=== PATIENT | male | born 1960 | race Caucasian/White ===

== ENCOUNTER 2017-02-24 02:06 | Observation (INO) | payer BC ==
[2017-02-24] MEDS ORDERED: ASPIRIN PO ONE (02:46)
[2017-02-24] MEDS ORDERED: ASPIRIN ONE (02:52)
--- NOTE | 2017-02-24 02:54 | DR.GENAD ---
HPI - PCP Primary Care Physician: sheridan - Complaint/Symptoms Chief Complaint Doctors Comments: Patient states he was getting out his recliner and had episode of slurred speech with problems walking with left side weakness lasting 15 minutes and then he went back to being normal. States he has never had similar problems before. States he has had a stomach virus for over a week and was sent to the ER few nights ago for IV fluids and saw him yesterday and had labs but he was feeling better today and the diarrhea had improved. He denies chest pain, SOB, edema, tobacco or alcohol usage. States he has been having diarrhea all week with vomiting from last Sunday until today. His appetite is good. States he has not been taking his blood pressure medicines because he does not like to take pills but he just got another refill from Dr. Alvarez recently but has not started it because he was sick. Chief Complaint:: slurred speech, high blood pressure. - Nurses notes reviewed Nurses Notes Review: Yes - Source History Provided: Patient - Mode of Arrival Mode of Arrival: Ambulatory - Timing Onset of Chief Complaint: 02/24/17 Came on: Suddenly - Duration Duration: Intermittent How lon Duration: Minutes - Location Location: slurred speech with probems with walking - Severity Severity: Mild - Modifying Factors Worsens:: nothing Improves:: nothing PMH - PMH Past Medical History: Yes Past Medical History: Depression, Dyslipidemia, Hypertension Past Surgical History: Yes Surgical History: Abdominal Surgery, Ortho Surgery, Other Past Surgical History Comment: patient has had umbillical hernia repair, right breast lumpectomy and knee surgery - Family History History of Family Medical Conditions: Yes Family Medical History: Diabetes Mellitus, Coronary Artery Disease, Heart Failure, Hypertension - Social History Does patient currently use any type of tobacco product: Yes Have you used tobacco products in the last 12 months: Yes Type of Tobacco Use: Smokeless Does any household member use tobacco: No Alcohol Use: None Do you use any recreational Drugs:: No Lives With: Family Lives Where: Home - infectious screening In the last 2 months have you had wt loss of >10#?: NO Have you had fever, night sweats or hemotysis?: No Have you traveled outside the country in the last 6 months?: No Isolation: Standard ROS - Review of Systems Constitutional: No Symptoms Reported. negative: See HPI, Chills, Diaphoresis, Fever, Malaise, Weakness, Irritable, Fatigue, Loss of Appetite, Other Eyes: No Symptoms Reported. negative: See HPI, Eye Pain, Blurred Vision, Tearing, Discharge, Photophobia, Diplopia, Other ENTM: No Symptoms Reported. negative: See HPI, Ear Pain, Ear Discharge, Pulling on Ears, Hearing Loss, Nose Pain, Nose Discharge, Epistaxis, Nose Congestion, Mouth Pain, Mouth Swelling, Loose Teeth, Drooling, Throat Pain, Throat Swelling, Ear Foreign Body Respiratoy: No Symptoms Reported. negative: See HPI, Productive Cough, Non- Productive Cough, Moist Cough, Dry Cough, Hacking Cough, Barking Cough, Brassy Cough, Orthopnea, Short of Breath, Stridor, Wheezing, Hemoptysis, Other Cardiovascular: No Symptoms Reported. negative: See HPI, Chest Pain, Edema, Palpitations, Syncope, Cyanosis, Skin Mottling, Other Gastrointestinal/Abdominal: No Symptoms Reported, Diarrhea, Nausea, Vomiting. negative: See HPI, Abdominal Pain, Constipation, Food Intolerance, Other Genitourinary: No Symptoms Reported Neurological: No Symptoms Reported, Paresthesia, Weakness, Problems Walking. negative: See HPI, Anxiety, Depressed, Emotional Problems, Headache, Numbness, Pre-existing Deficit, Seizure, Tingling, Tremors, Dizziness, Speech Problem, Other Musculoskeletal: No Symptoms Reported Integumentary: No Symptoms Reported Hematologic/Lymphatic: No Symptoms Reported. negative: See HPI, Anemia, Blood Clots, Easy Bleeding, Easy Bruising, Swollen Glands, Lymphadenopathy, Other Endocrine: No Symptoms Reported. negative: See HPI, Excessive Sweating, Flushing, Intolerance to Cold, Intolerance to Heat, Increased Hunger, Increased Thirst, Increased Urine, Unexplained Weight Gain, Unexplained Weight Loss, Failure to Thrive, Decreased Appetite, Other Psychiatric: No Symptoms Reported PE - Vital Signs Vitals: Temperature 98.5 F Pulse Rate 86 Respiratory Rate 18 Blood Pressure 155/92 O2 Sat by Pulse Oximetry 99 - General Limitations: No Limitations General Appearance: Alert, In No Apparent Distress - Head Head Exam: Normal Inspection, Atraumatic, Normocephalic - Eyes Eye exam: Normal Appearance, PERRL, EOMI. negative: Scleral Icterus, Conjunctival Injection, Nystagmus, Miosis, Mydrasis, Periorbital Swelling, Periorbital Tenderness, Other - ENT ENT Exam: Normal Exam, Normal Oropharynx, Normal External Ear Exam, Mucous Membranes Moist, TM's Normal Bilaterally External Ear Exam: Normal External Inspection TM/Canal Exam: Bilateral Normal Nose Exam: Normal Nose Exam Mouth Exam: Normal Inspection. negative: Drooling, Trismus, Lip Swelling, Tongue Elevation, Tongue Swelling, Laceration, Other Throat Exam: Normal Inspection. negative: Tonsillar Erythema, Tonsillomegaly, Tonsillar Exudate, R Peritonsillar Mass, L Peritonsillar Mass, Muffled Voice, Other - Neck Neck Exam: Normal Inspection, Full ROM, Trachea Midline - Chest Chest Inspection: Normal Inspection, Symmetric Chest Wall Rise - Respiratory Respiratory Exam: Normal Lung Sounds Bilat Respiratory Exam: Bilateral Clear to Auscultation - Cardiovascular Cardiovascular Exam: Regular Rate, Normal Rhythm, Normal Heart Sounds. negative : Bradycardia, Tachycardia, Irregular Rhythm, Systolic Murmur, Diastolic Murmur , Rubs, Gallop, Clicks, JVD, +S1, +S2, +S3, +S4, Other - Abdominal Exam Abdominal Exam: Normal Inspection, Normal Bowel Sounds, Soft Abdominal Tenderness: negative: RUQ, RLQ, LUQ, LLQ, Epigastrium, Suprapubic, Diffuse, Mild, Moderate, Severe, Other - Extremities Extremities Exam: Normal Inspection, Full ROM, Normal Capillary Refill - Back Back Exam: Normal Inspection, Full ROM. negative: Tenderness, (R) CVA Tenderness, (L) CVA Tenderness, Muscle Spasm, Paraspinal Tenderness, Vertebral Tenderness, Rashes, (R) Sciatic Notch Tenderness, (L) Sciatic Notch Tendern, (R ) Straight Leg Raise, (L) Straight Leg Raise, Other - Neurologic Neurological Exam: Alert, Oriented X3, CN II-XII Intact, Reflexes Normal. negative: Normal Gait (gait not tested), Motor Sensory Deficit (proprioception decreased left hand) - Psychiatric Psychiatric Exam: Normal Affect, Normal Mood. negative: Depressed, Agitated, Anxious, Flat Affect, Manic, Homicidal Ideation, Suicidal Ideation, Other - Skin Skin Exam: Warm, Dry, Intact, Normal Color Course - Reevaluation 1st: Improved - Consultation Called: 04:43 Call Returned: 04:43 (Dr. monahan to admit) - Education/Counseling Education/Counseling: Patient, Family Educated On: Treatment, Diagnosis, Needs for Follow Up ROR - Labs Reviewed Laboratory Results Reviewed?: Yes (all labs and x-ray results reviewed and discussed with patient) Result Diagrams: 02/24/17 03:20 02/24/17 03:20 Laboratory: WBC 6.5 X10^3/uL (3.6-10.0) 02/24/17 03:20 RBC 6.15 X10^6/uL (4.7-6.0) H 02/24/17 03:20 Hgb 16.7 g/dL (13.5-18.0) 02/24/17 03:20 Hct 48.6 % (42.0-54.0) 02/24/17 03:20 MCV 79.0 fL (80.0-100.0) L 02/24/17 03:20 MCH 27.1 pg (27.0-34.0) 02/24/17 03:20 MCHC 34.3 g/dL (33.0-35.0) 02/24/17 03:20 RDW 14.7 % (11.6-16.5) 02/24/17 03:20 Plt Count 137 X10^3/uL (150.0-450.0) L 02/24/17 03:20 MPV 8.6 fL (7.4-11.0) 02/24/17 03:20 Neut % 68.8 % (42.0-75.0) 02/24/17 03:20 Lymph % 19.6 % (21.0-51.0) L 02/24/17 03:20 [place] % 9.4 % (0.0-13.0) 02/24/17 03:20 Eos % 2.1 % (0.9-2.9) 02/24/17 03:20 Baso % 0.1 % (0.2-1.0) L 02/24/17 03:20 Neut # 4.5 x10^3/uL (2.2-4.8) 02/24/17 03:20 Lymph # 1.3 X10^3/uL (1.3-2.9) 02/24/17 03:20 [place] # 0.6 x10^3/uL (0.3-0.8) 02/24/17 03:20 Eos # 0.1 x10^3/uL (0.0-0.2) 02/24/17 03:20 Baso # 0.0 X10^3/uL (0.0-0.1) 02/24/17 03:20 Absolute Nucleated RBC 0.1 /100WBC 02/24/17 03:20 INR Target Range - 02/24/17 03:20 INR 0.99 (0.8-1.3) 02/24/17 03:20 PTT 30.6 SECONDS (22.9-36.5) 02/24/17 03:20 PTT Comment - 02/24/17 03:20 D-Dimer 133 ng/mL (0-400) 02/24/17 03:20 Sodium 141 mmol/L (136-145) 02/24/17 03:20 Corrected Sodium TNP 02/24/17 03:20 Potassium 3.5 mmol/L (3.5-5.1) 02/24/17 03:20 Chloride 104 mmol/L (98-107) 02/24/17 03:20 Carbon Dioxide 27.2 mmol/L (21-32) 02/24/17 03:20 BUN 11 mg/dL (7-18) 02/24/17 03:20 Creatinine 1.22 mg/dL (0.70-1.30) 02/24/17 03:20 Est GFR (MDRD) Af Amer > 60 (>60) 02/24/17 03:20 Est GFR (MDRD) Non-Af > 60 (>60) 02/24/17 03:20 Glucose 106 mg/dL (65-99) H 02/24/17 03:20 Calcium 9.2 mg/dL (8.5-10.1) 02/24/17 03:20 Corrected Calcium TNP 02/24/17 03:20 Magnesium 1.7 mg/dL (1.7-2.9) 02/24/17 03:20 Total Bilirubin 0.30 mg/dL (0.2-1.0) 02/24/17 03:20 AST 23 Units/L (15-37) 02/24/17 03:20 ALT 31 Units/L (12-78) 02/24/17 03:20 Alkaline Phosphatase 163 Units/L (46-116) H 02/24/17 03:20 Creatine Kinase 53 Units/L (39-308) 02/24/17 03:20 CK-MB (CK-2) < 1.0 ng/mL (0-4.0) 02/24/17 03:20 CK/CKMB % Calc 1.9 % (<4) 02/24/17 03:20 Troponin I < 0.02 ng/mL (0-1.5) 02/24/17 03:20 Total Protein 7.8 g/dL (6.4-8.2) 02/24/17 03:20 Albumin 3.5 g/dL (3.4-5.0) 02/24/17 03:20 Globulin 4.3 g/dL (2.5-4.5) 02/24/17 03:20 Albumin/Globulin Ratio 0.8 Ratio (1.1-2.1) L 02/24/17 03:20 Specimen Type Clean catch urine 02/24/17 03:15 Urine Color Yellow (YELLOW) 02/24/17 03:15 Urine Appearance Clear (CLEAR) 02/24/17 03:15 Urine pH 5.0 (5.0 - 8.0) 02/24/17 03:15 Ur Specific [place] 1.025 (1.000-1.030) 02/24/17 03:15 Urine Protein Negative (NEGATIVE) 02/24/17 03:15 Urine Glucose (UA) Negative (NEGATIVE) 02/24/17 03:15 Urine Ketones Negative (NEGATIVE) 02/24/17 03:15 Urine Occult Blood 1+ (NEGATIVE) 02/24/17 03:15 Urine Nitrite Negative (NEGATIVE) 02/24/17 03:15 Urine Bilirubin Negative (NEGATIVE) 02/24/17 03:15 Urine Urobilinogen Normal (NORMAL) 02/24/17 03:15 Ur Leukocyte Esterase Negative (NEGATIVE) 02/24/17 03:15 Urine RBC Rare /HPF (NEGATIVE) 02/24/17 03:15 Urine WBC None seen /HPF (NEGATIVE) 02/24/17 03:15 Ur Squamous Epith Cells Rare /HPF (NEGATIVE) 02/24/17 03:15 Urine Bacteria Negative /HPF (NEGATIVE) 02/24/17 03:15 Hyaline Casts Few /LPF (NEGATIVE) 02/24/17 03:15 Urine Mucus Many /HPF (NEGATIVE) 02/24/17 03:15 Ur Culture Indicated? No/not indicated 02/24/17 03:15 Urine Opiates Screen Negative (NEG=<300) 02/24/17 03:15 Urine Methadone Screen Negative (NEG=<300) 02/24/17 03:15 Ur Barbiturates Screen Negative (NEG=<200) 02/24/17 03:15 Ur Phencyclidine Scrn Negative (NEG=<25) 02/24/17 03:15 Ur Amphetamines Screen Negative (NEG=<1000) 02/24/17 03:15 U Benzodiazepines Scrn Negative (NEG=<200) 02/24/17 03:15 Urine Cocaine Screen Negative (NEG=<300) 02/24/17 03:15 U Marijuana (THC) Screen Negative (NEG=<50) 02/24/17 03:15 - XRAY XRAY Interpreted by: Radiologist (CT head: NO acute intracranial abnormality) XRAY Findings: CXR: No acue cardiopulmonary changes notes. - EKG Rate: 84 [place]: Normal Rhythm: NSR Block: None Hypertrophy: None ST: Nonsp - Diagnosis Discharge Problem: speech aphasia, Hemiparesis, left, Essential hypertension Altered mental status Qualifiers: Altered mental status type: transient alteration of awareness Qualified Code(s) : R40.4 - Transient alteration of awareness Transient ischemic attack (TIA) Qualifiers: Transient cerebral ischemia type: unspecified Qualified Code(s): G45.9 - Transient cerebral ischemic attack, unspecified - Discharge Plan Disposition: ADMITTED INPATIENT Condition: Stable - Follow ups/Referrals Follow ups/Referrals: NELL ALVAREZ [Primary Care Provider] - 3 days - Instructions
--- NOTE | 2017-02-24 03:24 | CT ---
CT head without contrast Indication: Altered mental status, slurred speech, hand numbness Technique: Helical CT images of the brain were obtained without IV contrast. Reformatted images in th e coronal and sagittal planes were also generated for review. Comparison: None Findings: There is no intracranial hemorrhage, visible acute infarct, focal or generalized edema, ext ra-axial collection, hydrocephalus or mass. The visualized paranasal sinuses and mastoid air cells ar e clear. No acute osseous or soft tissue abnormality is identified. Impression: No acute intracranial abnormality. Reported By:
[2017-02-24 03:37] LABS: BASOPHILS % (AUTO) 0.1 % (0.2-1.0); EOSINOPHILS # (AUTO) 0.1 x10^3/uL (0.0-0.2); EOSINOPHILS % (AUTO) 2.1 % (0.9-2.9); HEMATOCRIT 48.6 % (42.0-54.0); HEMOGLOBIN 16.7 g/dL (13.5-18.0); LYMPHOCYTES # (AUTO) 1.3 X10^3/uL (1.3-2.9); LYMPHOCYTES % (AUTO) 19.6 % (21.0-51.0); MEAN CORPUSCULAR HEMOGLOBIN 27.1 pg (27.0-34.0); MEAN CORPUSCULAR HGB CONC 34.3 g/dL (33.0-35.0); MEAN PLATELET VOLUME 8.6 fL (7.4-11.0); MONOCYTES # (AUTO) 0.6 x10^3/uL (0.3-0.8); MONOCYTES % (AUTO) 9.4 % (0.0-13.0); NEUTROPHILS # (AUTO) 4.5 x10^3/uL (2.2-4.8); NEUTROPHILS % (AUTO) 68.8 % (42.0-75.0); PLATELET COUNT 137 X10^3/uL (150.0-450.0); RED BLOOD COUNT 6.15 X10^6/uL (4.7-6.0); RED CELL DISTRIBUTION WIDTH 14.7 % (11.6-16.5); WHITE BLOOD COUNT 6.5 X10^3/uL (3.6-10.0)
[2017-02-24 03:38] LABS: BILIRUBIN,URINE NEGATIVE (NEGATIVE); BLOOD/HEMOGLOBIN,URINE 1+ (NEGATIVE); GLUCOSE, URINE NEGATIVE (NEGATIVE); KETONES,URINE NEGATIVE (NEGATIVE); LEUKOCYTE ESTERASE ,URINE NEGATIVE (NEGATIVE); NITRITES,URINE NEGATIVE (NEGATIVE); PROTEIN,URINE NEGATIVE (NEGATIVE); UROBILINOGEN,URINE NORMAL (NORMAL)
[2017-02-24 03:51] LABS: BLOOD UREA NITROGEN 11 mg/dL (7-18); CALCIUM 9.2 mg/dL (8.5-10.1); CARBON DIOXIDE 27.2 mmol/L (21-32); CHLORIDE 104 mmol/L (98-107); CREATININE 1.22 mg/dL (0.70-1.30); SODIUM 141 mmol/L (136-145); TROPONIN I < 0.02 ng/mL (0-1.5); eGFR BLACK RACES > 60 (>60); eGFR NON BLACK RACES > 60 (>60)
[2017-02-24 03:51] LABS: APPEARANCE,URINE CLEAR (CLEAR); BACTERIA,URINE NEGATIVE /HPF (NEGATIVE); COLOR,URINE YELLOW (YELLOW); RBC,URINE RARE /HPF (NEGATIVE); SQUAMOUS EPITHELIAL CELL,UR RARE /HPF (NEGATIVE)
[2017-02-24 03:52] LABS: HYALINE CASTS, URINE FEW /LPF (NEGATIVE); MUCUS,URINE MANY /HPF (NEGATIVE)
[2017-02-24 03:56] LABS: ALANINE AMINOTRANSFERASE 31 Units/L (12-78); ALBUMIN 3.5 g/dL (3.4-5.0); ALKALINE PHOSPHATASE 163 Units/L (46-116); ASPARTATE AMINO TRANSFERASE 23 Units/L (15-37); CKMB % 1.9 % (<4); CREATINE KINASE 53 Units/L (39-308); CREATINE KINASE MB < 1.0 ng/mL (0-4.0); MAGNESIUM 1.7 mg/dL (1.7-2.9); TOTAL PROTEIN 7.8 g/dL (6.4-8.2)
--- NOTE | 2017-02-24 04:36 | RAD ---
Chest, one view Indication: Chest pain Comparison: None Findings: The heart is normal in size for AP technique. The lungs are mildly hypoexpanded but clear. No focal consolidation, significant effusion or pneumothorax is identified. No acute osseous abnormal ity is seen. Impression: No acute cardiopulmonary abnormality. Reported By:
[2017-02-24] MEDS ORDERED: ZOFRAN INJ 4 MG VIAL IVP PRN (04:51)
[2017-02-24] MEDS ORDERED: NORMODYNE INJ 100 MG VIAL IVP ONE (04:54)
[2017-02-24] MEDS ORDERED: NORMODYNE INJ 20 MG VIAL ONE (04:54)
[2017-02-24] MEDS ORDERED: PLAVIX PO STA (04:56)
[2017-02-24] MEDS ORDERED: NS 1/2 1000 ML IV 1,000 ML IV SCH (05:00)
[2017-02-24] MEDS ORDERED: NS 1/2 1000 ML IV 1,000 ML IV ONE (05:09)
[2017-02-24] MEDS ORDERED: PLAVIX ONE (05:09)
[2017-02-24] MEDS: PROTONIX INJ 40 MG VIAL IVP SCH ×2 (05:30→08:17)
[2017-02-24 09:38] LABS: CHOL/HDL RATIO 7.4 (0.0-5.0); CHOLESTEROL 126 mg/dL (0-200); CREATINE KINASE 43 Units/L (39-308); CREATINE KINASE MB < 1.0 ng/mL (0-4.0); HDL CHOLESTEROL 17 mg/dL (40-60); TRIGLYCERIDES 219 mg/dL (0-150); TROPONIN I < 0.02 ng/mL (0-1.5)
[2017-02-24 09:51] LABS: CKMB % 2.3 % (<4)
[2017-02-24 10:12] VITALS: BMI 33.5
[2017-02-24] MEDS ORDERED: VSL#3 PO SCH (10:45)
[2017-02-24 15:52] LABS: CREATINE KINASE 37 Units/L (39-308); CREATINE KINASE MB < 1.0 ng/mL (0-4.0); TROPONIN I < 0.02 ng/mL (0-1.5)
[2017-02-24 15:56] LABS: CKMB % 2.7 % (<4)
[2017-02-24 16:23] VITALS: BP 141/97
== END 2017-02-24 16:40 | disposition home or self-care (01) ==
LOC: ER 02:06 → MED/SURG 04:46
PROVIDERS: ADMIT Internal Medicine; ATTEND Obstetrics & Gynecology Obstetrics
DX: G45.8 Other transient cerebral ischemic attacks and related syndromes (principal); I10 Essential (primary) hypertension; Z79.899 Other long term (current) drug therapy; R40.0 Somnolence; G81.94 Hemiplegia, unspecified affecting left nondominant side; R94.8 Abnormal results of function studies of other organs and systems; R47.01 Aphasia; E78.2 Mixed hyperlipidemia; Z87.19 Personal history of other diseases of the digestive system
CPT/HCPCS: 36415; 70450; 71045; 80053; 80061; 80307; 81001; 82550; 82553; 83735; 84484; 85025; 85378; 85610; 85730; 93005; 93010; 96365; 96374; 99284; A4222; C9113; G0378; G0434; J3490

== ENCOUNTER → 2017-03-07 | Outpatient (CLI) | payer BC ==
[2017-02-24 16:23] VITALS: BP 141/97
--- NOTE | 2017-03-07 15:11 | VAS ---
History: Hypertension, TIA Study: Bilateral carotid Doppler Findings: High-resolution linear array ultrasound and color Doppler evaluation of the carotids is per formed bilaterally. The common, internal and external carotid arteries are patent without evidence of plaque or stenosis. There is antegrade flow within the right vertebral artery. The left vertebral ar mira was not visualized. Impression: Normal carotid Doppler. Nonvisualization of the left vertebral artery. Reported By:
== END ==
LOC: RAD 09:50
PROVIDERS: ATTEND Obstetrics & Gynecology Obstetrics
DX: Z86.73 Personal history of transient ischemic attack (TIA), and cerebral infarction without residual deficits (principal)
CPT/HCPCS: 93880